=== PATIENT | male | born 2000 | race Two or more races ===

== ENCOUNTER 2024-03-20 13:45 | Emergency (ER) | payer OTHER ==
[~2024-03-20] VITALS: Ht 177.8 cm; Wt 124.7 kg
[2024-03-20] MEDS ORDERED: FAMOtidine 10 MG/ML (4ML VIAL) IV ONE (14:00)
[2024-03-20] MEDS ORDERED: MULTIVIT INFUSN,ADULT 4,VIT K 10 ML VIAL IV ONE (14:00)
[2024-03-20] MEDS ORDERED: 0.9 % SODIUM CHLORIDE 1,000 ML IV ONE (14:00)
[2024-03-20 14:39] LABS: HEMATOCRIT 44.5 % (39.0-48.0); HEMOGLOBIN 14.7 g/dL (13-16.00); MEAN CELL VOLUME 78.9 fL (80.0-100.00); MEAN CORPUSCULAR HEMOGLOBIN 26.1 pg (27.00-32.0); MEAN CORPUSCULAR HGB CONC 33.1 g/dl (32.0-36.0); PLATELET COUNT 233 K/uL (150-450); RED BLOOD COUNT 5.64 M/uL (4.00-6.00); RED CELL DISTRIBUTION WIDTH 14.9 % (11.5-14.5)
[2024-03-20] MEDS ORDERED: ZYRTEC10 MG PO (15:56)
[2024-03-20] MEDS ORDERED: BENZONATATE200 M1 PO (15:56)
[2024-03-20] MEDS ORDERED: AZITHROMYCIN250 MG PO (15:56)
[2024-03-20] MEDS ORDERED: PEPCID AC20 MG PO (15:56)
[2024-03-20] MEDS ORDERED: MEDROLPACK PO (15:56)
== END 2024-03-20 16:59 | disposition home or self-care (01) ==
LOC: ER 13:47
PROVIDERS: General Practice
DX: J00 Acute nasopharyngitis [common cold] (principal); Z20.822 Contact with and (suspected) exposure to COVID-19

== ENCOUNTER 2024-06-03 15:18 | Emergency (ER) | payer OTHER ==
[~2024-06-03] VITALS: Ht 175.3 cm; Wt 122.5 kg
[~2024-06-03 15:18] MED LIST: AZITHROMYCIN250 MG PO; BENZONATATE200 M1 PO; MEDROLPACK PO; PEPCID AC20 MG PO; ZYRTEC10 MG PO
[2024-06-03] MEDS ORDERED: FAMOTIDINE/PF 20 MG in 0.9 % SODIUM CHLORIDE 8 ML IV PUSH STA (16:49)
[2024-06-03] MEDS ORDERED: ONDANSETRON HCL 2 MG/ML VIAL IV ONE (17:00)
[2024-06-03] MEDS ORDERED: KETOROLAC TROMETHAMINE 30 MG VIAL IV ONE (17:00)
[2024-06-03] MEDS ORDERED: 0.9 % SODIUM CHLORIDE 1,000 ML IV SCH (17:00)
[2024-06-03] MEDS ORDERED: KETOROLAC TROMETHAMINE 30 MG VIAL ONE (17:27)
[2024-06-03] MEDS ORDERED: ONDANSETRON HCL 2 MG/ML VIAL ONE (17:27)
[2024-06-03] MEDS ORDERED: FAMOTIDINE/PF 20 MG/2 ML VIAL ONE (17:27)
[2024-06-03 18:11] LABS: HEMATOCRIT 41.9 % (39.0-48.0); HEMOGLOBIN 14.4 g/dL (13-16.00); MEAN CELL VOLUME 78.5 fL (80.0-100.00); MEAN CORPUSCULAR HGB CONC 34.4 g/dl (32.0-36.0); PLATELET COUNT 231 K/uL (150-450); RED BLOOD COUNT 5.34 M/uL (4.00-6.00); RED CELL DISTRIBUTION WIDTH 14.7 % (11.5-14.5)
[2024-06-03 18:34] LABS: ALBUMIN 4.2 gm/dL (3.4-5.0); BILIRUBIN TOTAL 0.66 mg/dL (0.3-1.2); CALCIUM 9.4 mg/dL (8.5-10.1); CREATININE SERUM 1.1 mg/dL (0.70-1.30); GFR 82.24; GLOBULINA 4.1 G/DL (2.4-3.5); POTASSIUM 3.78 mEq/L (3.5-5.1); TOTAL PROTEIN 8.3 gm/dL (6.4-8.2)
[2024-06-03] MEDS ORDERED: TUSNEL LIQUID178 ML PO (19:56)
[2024-06-03] MEDS ORDERED: PROAIR RESPICL90 MCG IH (19:56)
[2024-06-03] MEDS ORDERED: DOLOGEN CAPLET1 EACH PO (19:56)
[2024-06-03] MEDS ORDERED: PAXLOVID 300-11 EAC1 PO (19:56)
== END 2024-06-03 20:20 | disposition home or self-care (01) ==
LOC: ER 15:21
PROVIDERS: General Practice
DX: U07.1 COVID-19 (principal)